=== PATIENT | female | born 1950 | race Caucasian/White ===

== ENCOUNTER → 2016-10-21 | Outpatient (CLI) | payer MEDICARE | LOC: YCFC.O 15:00 | PROVIDERS: ATTEND Anesthesiology Pain Medicine | DX: Z79.891 Long term (current) use of opiate analgesic (principal) | CPT/HCPCS: 80354; 80358; 80365; G0479 ==

== ENCOUNTER 2017-11-17 15:53 | Emergency (ER) | payer MEDICARE ==
[2017-11-17 16:18] VITALS: BP 146/104; TEMP 97.1; O2SAT 98
--- NOTE | 2017-11-17 17:05 | RAD ---
EXAM DESCRIPTION: Chest,2 Views CLINICAL HISTORY: 67 years Female, cough, diarrhea COMPARISON: 21 October 2015 TECHNIQUE: PA/lateral FINDINGS: There is no cardiac or pulmonary abnormality. The lungs are clear. There is no effusion. IMPRESSION: 1. Normal two-view chest. Electronically signed by: Chris Garcia MD 11/17/2017 5:04 PM [facility]
--- NOTE | 2017-11-17 17:08 | RAD ---
EXAM DESCRIPTION: Abdomen Flat Upright CLINICAL HISTORY: cough, diarrhea COMPARISON: None FINDINGS: Supine and upright images of the abdomen were submitted. The heart is enlarged. The right side of the cardiomediastinal silhouette is poorly defined, and there is thickening of the pulmonary interstitial markings. There is no free air in the abdomen. There is no evidence of bowel obstruction. IMPRESSION: Findings suggest inflammation of the lungs, perhaps viral. No acute intra-abdominal abnormalities. Electronically signed by: Ravi Harris 11/17/2017 5:07 PM [facility]
--- NOTE | 2017-11-17 18:11 | ED.PDOC ---
History of Present Illness - General Chief Complaint: General Stated Complaint: DIARRHEA, URI Time Seen by Provider: 11/17/17 16:17 Source: patient Exam Limitations: no limitations - History of Present Illness Initial Comments: The patient is a 67-year-old female presenting to the emergency room with mild cough and congestion as well as some very mild nausea and some diarrhea for the better part of last week. Questionable low-grade fevers. No chest pain. No shortness of breath. No vomiting. No blood in the stool. She does have a grandson with similar symptoms. Timing/Duration: unsure, 1 week Severity: mild Improving Factors: nothing Worsening Factors: nothing Associated Symptoms: cough, loss of appetite, malaise Allergies/Adverse Reactions: Allergies NO KNOWN ALLERGY Allergy (Verified 03/16/16 18:45) Home Medications: Ambulatory Orders Ciprofloxacin [Cipro] 500 mg PO BID #14 tab 05/06/16 Lisinopril & Hydrochlorothiazi [Lisinopril/Hctz 20-12.5 mg] 1 tab PO 05/06/16 Review of Systems - Review of Systems Constitutional: States: malaise EENTM: States: nose congestion Respiratory: States: cough Cardiology: States: no symptoms reported Gastrointestinal/Abdominal: States: diarrhea, nausea Genitourinary: States: no symptoms reported Musculoskeletal: States: no symptoms reported Skin: States: no symptoms reported Neurological: States: no symptoms reported Endocrine: States: no symptoms reported Hematologic/Lymphatic: States: no symptoms reported All other Systems: No Change from Baseline Past Medical History (General) - Patient Medical History Hx Stroke: No Hx Asthma: No Hx of COPD: No Hx Congestive Heart Failure: Yes Hx Hypertension: Yes Hx Thyroid Disease: Yes Hx Diabetes: No Hx Cancer: No Hx MRSA: No Surgical History: Hysterectomy - Vaccination History Hx Tetanus, Diphtheria Vaccination: No Hx Influenza Vaccination: No Hx Pneumococcal Vaccination: No Immunizations Up to Date: No - Social History Hx Tobacco Use: Yes Hx Alcohol Use: No Hx Substance Use: No Hx Substance Use Treatment: No Hx Depression: Yes - Female History Patient : No Family Medical History - Family History Mother Family History: Unknown Hx Family Hypertension: Yes Hx Family Cancer: Yes - lung Physical Exam - Physical Exam General Appearance: Alert, Comfortable, No apparent distress Eye Exam: bilateral normal Ears, Nose, Throat: hearing grossly normal, normal pharynx, nasal congestion Neck: full range of motion, supple Respiratory: lungs clear, normal breath sounds, no respiratory distress, no accessory muscle use Cardiovascular/Chest: normal peripheral pulses, regular rate, rhythm, no edema Peripheral Pulses: radial,right: 2+, radial,left: 2+, dorsalis pedis,right: 2+, dorsalis pedis,left: 2+ Gastrointestinal/Abdominal: non tender, soft Rectal Exam: deferred Back Exam: normal inspection, no CVA tenderness Extremity: normal range of motion, non-tender, normal inspection, no pedal edema , normal capillary refill 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 She needs to keep herself well-hydrated. Pepto-Bismol can be used as needed for constipation. Pepcid can be used twice daily for gastritis. Tylenol and ibuprofen can be used for any body aches and discomfort. ER warnings are given for any significant worsening. She should follow-up with her primary care doctor towards the end of the week. She tested negative for the flu here today. - Results/Orders Results/Orders: she has tested negative for the flu. Two-view chest into the abdomen showed no acute pathology. Departure - Departure Clinical Impression: Viral syndrome Disposition: Discharge to Home or Self Care Condition: Fair Departure Forms: ED Discharge - Pt. Copy, Patient Portal Self Enrollment Instructions: DI for Viral Syndrome Diet: bland diet Activity: increase activity as tolerated Referrals: Robert Wolfe MD [Primary Care Provider] - 1-2 Weeks Home Medications: Ambulatory Orders Ciprofloxacin [Cipro] 500 mg PO BID #14 tab 05/06/16 Lisinopril & Hydrochlorothiazi [Lisinopril/Hctz 20-12.5 mg] 1 tab PO 05/06/16 Additional Instructions: the patient is a 67-year-old female presenting to the emergency room secondary to what appears to be a viral syndrome giving both respiratory and GI symptoms. She needs to keep herself well-hydrated. Pepto-Bismol can be used as needed for constipation. Pepcid can be used twice daily for gastritis. Tylenol and ibuprofen can be used for any body aches and discomfort. ER warnings are given for any significant worsening. She should follow-up with her primary care doctor towards the end of the week. She tested negative for the flu here today.
== END 2017-11-17 18:17 | disposition home or self-care (01) ==
LOC: ER 15:53
DX: R05 Cough (principal); B34.9 Viral infection, unspecified; I11.0 Hypertensive heart disease with heart failure; I50.9 Heart failure, unspecified; E07.9 Disorder of thyroid, unspecified

== ENCOUNTER 2018-05-05 20:19 | Emergency (ER) | payer MEDICARE ==
[2018-05-05 20:39] VITALS: BP 92/56; O2SAT 98
--- NOTE | 2018-05-05 20:55 | RAD ---
EXAM DESCRIPTION: Foot,Left 2 Views CLINICAL HISTORY: 68 years Female, injured foot a month ago, still having pain COMPARISON: 03/16/2015 FINDINGS: Frontal and lateral views of the left foot No fracture or dislocation. Calcaneus bone is within normal limits. A small ankle joint effusion is possible. IMPRESSION: 1. No acute osseous finding. 2. Possible small ankle joint effusion Electronically signed by: Soila Terry MD 05/05/2018 8:54 PM CDT
--- NOTE | 2018-05-05 21:07 | ED.PDOC ---
History of Present Illness - General Chief Complaint: Lower Extremity Injury Stated Complaint: Left foot pain Time Seen by Provider: 05/05/18 20:56 Source: patient Exam Limitations: no limitations - History of Present Illness Initial Comments: INJURED L FOOT 1 MO AGO IN HER TRAVEL TRAILER WHEN BED FELL ATOP OF IN. THEN LAST NIGHT REINJURED WHEN SHE WAS STANDING ON HER BED AND ACCIDENTALLY SLIPPED OFF. SHE MENTIONS SHE HAD A LUMBAR MRI WITH DR. 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 Occurred: yesterday Pain - Lower Extremity: moderate: Left Foot Method of Injury: fell Improving Factors: immobilization Worsening Factors: movement Allergies/Adverse Reactions: Allergies NO KNOWN ALLERGY Allergy (Verified 03/16/16 18:45) Home Medications: Ambulatory Orders Ciprofloxacin [Cipro] 500 mg PO BID #14 tab 05/06/16 Lisinopril & Hydrochlorothiazi [Lisinopril/Hctz 20-12.5 mg] 1 tab PO 05/06/16 Ibuprofen 800 mg PO TID #21 tab 05/05/18 Review of Systems - Review of Systems Constitutional: States: no symptoms reported EENTM: States: no symptoms reported Respiratory: States: no symptoms reported Cardiology: States: no symptoms reported Gastrointestinal/Abdominal: States: no symptoms reported Genitourinary: States: no symptoms reported Musculoskeletal: States: see HPI, joint pain, joint swelling. Denies: back pain , neck pain Skin: States: no symptoms reported. Denies: lesions, rash Neurological: States: pre-existing deficit - CHRONICALLY DECREASED SENSATION PLANTAR SURFACE. Endocrine: States: no symptoms reported Hematologic/Lymphatic: States: no symptoms reported All other Systems: Reviewed and Negative Past Medical History (General) - Patient Medical History Hx Stroke: No Hx Asthma: No Hx of COPD: No Hx Congestive Heart Failure: Yes Hx Hypertension: Yes Hx Thyroid Disease: Yes Hx Diabetes: No Hx Cancer: No Hx MRSA: No Surgical History: Hysterectomy - Vaccination History Hx Tetanus, Diphtheria Vaccination: No Hx Influenza Vaccination: No Hx Pneumococcal Vaccination: No - Social History Hx Tobacco Use: Yes Hx Alcohol Use: No Hx Substance Use: No Hx Substance Use Treatment: No Hx Depression: Yes - Female History Patient : No - Triage Comment ED Triage Comment: top of left foot, bruising noted, no edema Family Medical History - Family History Mother Family History: Unknown Hx Family Hypertension: Yes Hx Family Cancer: Yes - lung Physical Exam - Physical Exam General Appearance: Alert, No apparent distress Eyes, Ears, Nose, Throat: PERRL/EOMI, normal ENT inspection Neck: non-tender, full range of motion Cardiovascular/Respiratory: regular rate, rhythm, no M/R/G Gastrointestinal/Abdominal: non-tender, no organomegaly Back: normal inspection, no vertebral tenderness Thigh/Hip: normal inspection, no evidence of injury Leg: normal inspection, no evidence of injury Knee: normal inspection, no evidence of injury Ankle: normal inspection, no evidence of injury Foot: normal inspection, bone tenderness, soft tissue tenderness, other - MIDFOOT AND HINDFOOT TTP. ATFL LIGAMENT NON-TENDER TO STRETCH. NO ANKLE PAIN WITH FLEX/EXT. NO EDEMA. NO ERYTHEMA. DP/PT PULSES 2+ Neuro/Tendon: normal sensation, normal motor functions, normal tendon functions , responds to pain Mental Status: alert, oriented x 3 Skin: normal color, warm/dry Progress - Progress Progress: 05/05/18 21:27 L FOOT XRAY NEG. POS SPRAIN/STRAIN. R.I.C.E. MOTRIN. F/U W/ PCP. Departure - Departure Clinical Impression: Left foot pain, Strain of foot, left Disposition: Discharge to Home or Self Care Condition: Good Departure Forms: ED Discharge - Pt. Copy, Patient Portal Self Enrollment Instructions: Foot Sprain (DC) Diet: resume usual diet Activity: increase activity as tolerated Referrals: Robert Wolfe MD [Primary Care Provider] - 1-2 Weeks Prescriptions: Ibuprofen 800 mg PO TID #21 tab Home Medications: Ambulatory Orders Ciprofloxacin [Cipro] 500 mg PO BID #14 tab 05/06/16 Lisinopril & Hydrochlorothiazi [Lisinopril/Hctz 20-12.5 mg] 1 tab PO 05/06/16 Ibuprofen 800 mg PO TID #21 tab 05/05/18 Additional Instructions: Please apply ice to the area, rest, and elevate the foot. Take the ibuprofen for 1 week. Please follow-up with Dr. Wolfe to discuss the results of the low back MRI he ordered and to see how your foot is feeling.
[2018-05-05] MEDS ORDERED: KETOROLAC TROMETHAMINE INJ 60 MG/2 ML VIAL IM ONE (21:15)
[2018-05-05 21:37] VITALS: TEMP 98.4
== END 2018-05-05 21:37 | disposition home or self-care (01) ==
LOC: ER 20:19
DX: S96.912A Strain of unspecified muscle and tendon at ankle and foot level, left foot, initial encounter (principal); I11.0 Hypertensive heart disease with heart failure; I50.9 Heart failure, unspecified; E07.9 Disorder of thyroid, unspecified; Z79.899 Other long term (current) drug therapy; W06.XXXA Fall from bed, initial encounter; Y92.029 Unspecified place in mobile home as the place of occurrence of the external cause
CPT/HCPCS: 73620; J1885

== ENCOUNTER 2018-08-30 23:12 | Emergency (ER) | payer MEDICARE ==
[2018-08-31] MEDS: POTASSIUM CHLORIDE ELIXIR 20 MEQ/15 ML UD PO ONE (00:18)
--- NOTE | 2018-08-31 00:25 | RAD ---
EXAM: TWO VIEW SINGLE and UPRIGHT ABDOMEN AND PA CHEST RADIOGRAPHS CLINICAL INDICATION: Acute chest pain. Shortness of breath. Diarrhea. COMPARISON: Compared to the chest radiographs of November 17, 2017. FINDINGS: Cardiac size and pulmonary vasculature are normal. Hyperexpanded lungs are clear. No pleural effusions or pneumothorax. Bones of the chest appear intact. Multiple loops of gas-filled nondistended small bowel colon suspicious for adynamic ileus. No mechanical bowel obstruction or extraluminal bowel gas. Bowel gas extends into the rectum. IMPRESSION: 1. Suspect early adynamic ileus versus enteritis. No mechanical bowel obstruction or extraluminal bowel gas. 2. Normal for age chest radiograph. Electronically signed by: Thor Henley MD 08/31/2018 12:24 AM [employer]
--- NOTE | 2018-08-31 01:22 | ED.PDOC ---
History of Present Illness - General Chief Complaint: Chest Pain/NM Stated Complaint: L shoulder/back pain x 1 month, SOB 1-2 month Time Seen by Provider: 08/30/18 23:21 Source: patient Exam Limitations: no limitations - History of Present Illness Initial Comments: the patient is a 68-year-old female presenting to the emergency room secondary to a constellation of symptoms. Patient reports intermittent chest pains for the last 2 months. She has been having frequent diarrhea. She has been having frequent headaches. She has been having frequent anxiety. She reports that she tried to go to the primary care doctor 2 days ago he was not in. She does report some urinary frequency. She has been taking over-the- counter nutritional supplements. Chest pains do not seem to be tied to activity. No history of any cardiac issues but she does have a history of hypertension. the patient is in no distress whatsoever. She does have chest wall pain diffusely that does reproduce her chest pain entirely. It is worse with movement. No abdominal pain palpation. No palpable mass. No neurological changes. The patient is very anxious Timing/Duration: unsure Severity: mild Improving Factors: nothing Worsening Factors: nothing Associated Symptoms: chest pain, headaches, malaise Allergies/Adverse Reactions: Allergies NO KNOWN ALLERGY Allergy (Verified 08/30/18 23:38) Home Medications: Ambulatory Orders Ciprofloxacin [Cipro] 500 mg PO BID #14 tab 05/06/16 Lisinopril & Hydrochlorothiazi [Lisinopril/Hctz 20-12.5 mg] 1 tab PO 05/06/16 Ibuprofen 800 mg PO TID #21 tab 05/05/18 Cephalexin Monohydrate [Keflex] 500 mg PO Q8H #20 cap 08/31/18 Review of Systems - Review of Systems Constitutional: States: malaise EENTM: States: nose congestion Respiratory: States: short of breath - mild Cardiology: States: chest pain Gastrointestinal/Abdominal: States: diarrhea Genitourinary: States: frequency Musculoskeletal: States: other - generalized achiness Skin: States: no symptoms reported Neurological: States: headache Endocrine: States: no symptoms reported All other Systems: No Change from Baseline Past Medical History (General) - Patient Medical History Hx Seizures: No Hx Stroke: No Hx Dementia: No Hx Asthma: No Hx of COPD: Yes Hx Cardiac Disorders: No Hx Congestive Heart Failure: Yes Hx Pacemaker: No Hx Hypertension: Yes Hx Thyroid Disease: Yes Hx Diabetes: No Hx Gastroesophageal Reflux: No Hx Renal Disease: No Hx Cancer: No Hx of HIV: No Hx Hepatitis C: No Hx MRSA: No Surgical History: Hysterectomy - Vaccination History Hx Tetanus, Diphtheria Vaccination: No Hx Influenza Vaccination: No Hx Pneumococcal Vaccination: No - Social History Hx Tobacco Use: Yes Hx Alcohol Use: No Hx Substance Use: No Hx Substance Use Treatment: No Hx Depression: Yes - Female History Patient : No Family Medical History - Family History Mother Family History: Unknown Hx Family Hypertension: Yes Hx Family Cancer: Yes - lung Physical Exam - Physical Exam General Appearance: Alert, Anxious, No apparent distress Eye Exam: bilateral normal Ears, Nose, Throat: hearing grossly normal, normal ENT inspection, normal pharynx Neck: full range of motion, supple, normal inspection Respiratory: lungs clear, normal breath sounds, no respiratory distress, no accessory muscle use, other - anterior chest wall discomfort palpation Cardiovascular/Chest: normal peripheral pulses, regular rate, rhythm, no edema Peripheral Pulses: radial,right: 2+, radial,left: 2+, dorsalis pedis,right: 2+, dorsalis pedis,left: 2+ Gastrointestinal/Abdominal: non tender, soft Rectal Exam: deferred Back Exam: normal inspection, no CVA tenderness, no vertebral tenderness Extremity: normal range of motion, non-tender, normal inspection, no pedal edema , normal capillary refill Neurologic: science faculty member II-XII nml as tested, no motor/sensory deficits, alert, normal mood/affect - she is anxious, oriented x 3 Skin Exam: normal color Comments: Vital Signs - 24 hr 08/30/18 08/31/18 23:16 00:28 Temperature 96.5 F L Pulse Rate [ 80 76 monitor] Respiratory 16 16 Rate Blood Pressure 121/96 140/71 [Left Arm] O2 Sat by Pulse 99 96 Oximetry Progress - Progress Progress: 08/31/18 01:25 the patient's 68-year-old female presenting to the emergency room with a numerous symptoms. Potassium is slightly low and she was given a dose of potassium here. She will need to have this rechecked in a couple of weeks with her primary care doctor to see if this is persisting. The patient has been having some diarrhea recently. I do recommend that she hold her dietary and nutritional supplements for a few weeks, as these may be contributing. She does have a small urinary tract infection will be placed on Keflex 3 times daily for 7 days. Urine culture is being performed. I do recommend that she maintain a high fiber diet for now. Chest pain appears to be reproducible and due to chest wall discomfort. This may improve with the correction of the hypokalemia. Topical heat in the form of icy hot or Biofreeze may also help. She needs to follow back up with her primary care doctor this coming week. ER warnings were given. - Results/Orders Results/Orders: telemetry shows normal sinus rhythm EKG shows an inverted T wave in lead [address] segment or T-wave changes consistent with any ischemia. Mild right axis deviation. Borderline LVH. Mild left atrial dilation. Normal QT interval. Normal sinus rhythm at 81 bpm. Acute abdominal series shows a normal chest radiograph per age. Abdomen x-ray showed mild dilation of loops of bowels consistent with possible adynamic ileus or gastroenteritis. Laboratory Results - last 24 hr 08/30/18 08/30/18 08/30/18 23:50 23:50 23:50 WBC 6.5 RBC 4.17 L Hgb 13.4 Hct 40.4 MCV 96.8 MCH 32.1 H MCHC 33.2 RDW 13.5 Plt Count 240 MPV 7.1 L Absolute Neuts (auto) 3.50 Absolute Lymphs (auto) 2.00 Absolute Monos (auto) 0.50 Absolute Eos (auto) 0.40 Absolute Basos (auto) 0.10 Neutrophils % 54.3 Lymphocytes % 31.3 Monocytes % 8.1 Eosinophils % 5.5 H Basophils % 0.8 PT 9.7 INR 0.97 PTT (SP) 23.4 Sodium 141 Potassium 3.5 L Chloride 109 Carbon Dioxide 27 Anion Gap 8.5 L BUN 14 Creatinine 0.87 BUN/Creatinine Ratio 16.1 Random Glucose 99 Serum Osmolality 281.8 Calcium 10.1 Magnesium 2.1 Total Bilirubin < 0.2 L AST 21 ALT 15 Alkaline Phosphatase 88 Creatine Kinase 82 CK-MB (CK-2) 2.6 CK-MB (CK-2) % Not Reportable Troponin I < 0.02 B-Natriuretic Peptide 20.1 Serum Total Protein 6.6 Albumin 3.6 Globulin 3.0 Albumin/Globulin Ratio 1.2 Amylase 42 Lipase 28 TSH 0.70 Urine Color Urine Appearance Urine pH Ur Specific [place] Urine Protein Urine Glucose (UA) Urine Ketones Urine Blood Urine Nitrite Urine Bilirubin Urine Urobilinogen Ur Leukocyte Esterase Urine RBC Urine WBC Ur Epithelial Cells Urine Bacteria 08/31/18 00:05 WBC RBC Hgb Hct MCV MCH MCHC RDW Plt Count MPV Absolute Neuts (auto) Absolute Lymphs (auto) Absolute Monos (auto) Absolute Eos (auto) Absolute Basos (auto) Neutrophils % Lymphocytes % Monocytes % Eosinophils % Basophils % PT INR PTT (SP) Sodium Potassium Chloride Carbon Dioxide Anion Gap BUN Creatinine BUN/Creatinine Ratio Random Glucose Serum Osmolality Calcium Magnesium Total Bilirubin AST ALT Alkaline Phosphatase Creatine Kinase CK-MB (CK-2) CK-MB (CK-2) % Troponin I B-Natriuretic Peptide Serum Total Protein Albumin Globulin Albumin/Globulin Ratio Amylase Lipase TSH Urine Color Yellow Urine Appearance Cloudy Urine pH 6.0 Ur Specific [place] 1.015 Urine Protein Negative Urine Glucose (UA) Negative Urine Ketones Negative Urine Blood Negative Urine Nitrite Positive H Urine Bilirubin Negative Urine Urobilinogen 0.2 Ur Leukocyte Esterase Negative Urine RBC 0 Urine WBC 5-10 H Ur Epithelial Cells 0-1 Urine Bacteria 4+ H Departure - Departure Clinical Impression: Hypokalemia, Cystitis, Chest wall pain Diarrhea Qualifiers: Diarrhea type: unspecified type Qualified Code(s): R19.7 - Diarrhea, unspecified Disposition: Discharge to Home or Self Care Condition: Fair Departure Forms: ED Discharge - Pt. Copy, Patient Portal Self Enrollment Instructions: Hypokalemia (DC), Urinary Tract Infection, Adult (DC), [place] Diet Diet: bland diet - High-fiber Activity: increase activity as tolerated Referrals: Robert Wolfe MD [Primary Care Provider] - 1-2 Days Prescriptions: Cephalexin Monohydrate [Keflex] 500 mg PO Q8H #20 cap Home Medications: Ambulatory Orders Ciprofloxacin [Cipro] 500 mg PO BID #14 tab 05/06/16 Lisinopril & Hydrochlorothiazi [Lisinopril/Hctz 20-12.5 mg] 1 tab PO 05/06/16 Ibuprofen 800 mg PO TID #21 tab 05/05/18 Cephalexin Monohydrate [Keflex] 500 mg PO Q8H #20 cap 08/31/18 Additional Instructions: the patient's 68-year-old female presenting to the emergency room with a numerous symptoms. Potassium is slightly low and she was given a dose of potassium here. She will need to have this rechecked in a couple of weeks with her primary care doctor to see if this is persisting. The patient has been having some diarrhea recently. I do recommend that she hold her dietary and nutritional supplements for a few weeks, as these may be contributing. She does have a small urinary tract infection will be placed on Keflex 3 times daily for 7 days. Urine culture is being performed. I do recommend that she maintain a high fiber diet for now. Chest pain appears to be reproducible and due to chest wall discomfort. This may improve with the correction of the hypokalemia. Topical heat in the form of icy hot or Biofreeze may also help. She needs to follow back up with her primary care doctor this coming week. ER warnings were given.
[2018-08-31] MEDS: CEPHALEXIN MONOHYDRATE 500 MG CAP PO ONE (01:25)
[2018-08-31 01:43] VITALS: BP 119/83; TEMP 97.1; O2SAT 97
== END 2018-08-31 01:43 | disposition home or self-care (01) ==
LOC: ER 23:12
DX: R07.1 Chest pain on breathing (principal); N30.90 Cystitis, unspecified without hematuria; R19.7 Diarrhea, unspecified; E87.6 Hypokalemia; R51 Headache; J44.9 Chronic obstructive pulmonary disease, unspecified; I50.9 Heart failure, unspecified; I11.0 Hypertensive heart disease with heart failure; E07.9 Disorder of thyroid, unspecified; Z87.891 Personal history of nicotine dependence; Z79.899 Other long term (current) drug therapy

== ENCOUNTER 2019-01-17 19:16 | Emergency (ER) | payer MEDICARE ==
--- NOTE | 2019-01-17 19:33 | ED.PDOC ---
History of Present Illness - General Time Seen by Provider: 01/17/19 19:18 Source: patient Exam Limitations: no limitations - History of Present Illness Initial Comments: the patient's 68-year-old female presenting to the emergency room secondary to a mild cellulitis to the left forearm that has been present for about 5 days. There are 2 spots, the uppermost is about the size of a nickel with a circular shape to it. There is no evidence of any abscess formation underneath and no streaking erythema. The second is approximately 2 inches distal and is about 3-4 mm in diameter with again no evidence of any pus or streaking about it. They are minimally tender. No evidence of any other skin lesions. Timing/Duration: other - 5 days Severity: mild Improving Factors: nothing Worsening Factors: nothing Associated Symptoms: denies symptoms Allergies/Adverse Reactions: Allergies NO KNOWN ALLERGY Allergy (Verified 08/30/18 23:38) Home Medications: Ambulatory Orders Ciprofloxacin [Cipro] 500 mg PO BID #14 tab 05/06/16 Lisinopril & Hydrochlorothiazi [Lisinopril/Hctz 20-12.5 mg] 1 tab PO 05/06/16 Ibuprofen 800 mg PO TID #21 tab 05/05/18 Cephalexin Monohydrate [Keflex] 500 mg PO Q8H #20 cap 08/31/18 Sulfa/Trimeth 800/160 (Ds) Tab [Bactrim DS Tab] 1 ea PO DAILY #5 tab 01/17/19 Review of Systems - Review of Systems Constitutional: States: no symptoms reported EENTM: States: no symptoms reported Respiratory: States: no symptoms reported Cardiology: States: no symptoms reported Gastrointestinal/Abdominal: States: no symptoms reported Genitourinary: States: no symptoms reported Musculoskeletal: States: no symptoms reported Skin: States: see HPI Neurological: States: no symptoms reported Endocrine: States: no symptoms reported All other Systems: No Change from Baseline Past Medical History (General) - Patient Medical History Hx Seizures: No Hx Stroke: No Hx Dementia: No Hx Asthma: No Hx of COPD: Yes Hx Cardiac Disorders: No Hx Congestive Heart Failure: Yes Hx Pacemaker: No Hx Hypertension: Yes Hx Thyroid Disease: Yes Hx Diabetes: No Hx Gastroesophageal Reflux: No Hx Renal Disease: No Hx Cancer: No Hx of HIV: No Hx Hepatitis C: No Hx MRSA: No - Vaccination History Hx Tetanus, Diphtheria Vaccination: No Hx Influenza Vaccination: No Hx Pneumococcal Vaccination: No - Social History Hx Tobacco Use: Yes Hx Alcohol Use: No Hx Substance Use: No Hx Substance Use Treatment: No Hx Depression: Yes - Female History Patient : No Family Medical History - Family History Mother Family History: Unknown Hx Family Hypertension: Yes Hx Family Cancer: Yes - lung Physical Exam - Physical Exam General Appearance: Alert, Comfortable, No apparent distress Eye Exam: bilateral normal Ears, Nose, Throat: hearing grossly normal Neck: full range of motion Respiratory: no respiratory distress, no accessory muscle use Cardiovascular/Chest: normal peripheral pulses, no edema Peripheral Pulses: radial,right: 2+, radial,left: 2+ Rectal Exam: deferred Extremity: normal range of motion, non-tender, no pedal edema, normal capillary refill Neurologic: panel assembler II-XII nml as tested, alert, normal mood/affect, oriented x 3 Skin Exam: normal color - except as per history of present illness Progress - Progress Progress: 01/17/19 19:32 the patient is 68-year-old female presenting with 2 small areas of ce llulitis to left upper extremity. I do believe that the irritation or infection is largely starting to resolve but I'm going to place her on 5 days of oral Bactrim once daily to help ensure that they go away. ER warnings were given for any worsening. Keep routine follow-up with primary care doctor. Departure - Departure Clinical Impression: Cellulitis Qualifiers: Site of cellulitis: extremity Site of cellulitis of extremity: upper extremity Laterality: left Qualified Code(s): L03.114 - Cellulitis of left upper limb Disposition: Discharge to Home or Self Care Condition: Fair Instructions: DI for Wound Infection Diet: regular diet Activity: increase activity as tolerated Referrals: Robert Wolfe MD [Primary Care Provider] - 1-2 Weeks Prescriptions: Sulfa/Trimeth 800/160 (Ds) Tab [Bactrim DS Tab] 1 ea PO DAILY #5 tab Home Medications: Ambulatory Orders Ciprofloxacin [Cipro] 500 mg PO BID #14 tab 05/06/16 Lisinopril & Hydrochlorothiazi [Lisinopril/Hctz 20-12.5 mg] 1 tab PO 05/06/16 Ibuprofen 800 mg PO TID #21 tab 05/05/18 Cephalexin Monohydrate [Keflex] 500 mg PO Q8H #20 cap 08/31/18 Sulfa/Trimeth 800/160 (Ds) Tab [Bactrim DS Tab] 1 ea PO DAILY #5 tab 01/17/19 Additional Instructions: the patient is 68-year-old female presenting with 2 small areas of cellulitis to left upper extremity. I do believe that the irritation or infection is largely starting to resolve but I'm going to place her on 5 days of oral Bactrim once daily to help ensure that they go away. ER warnings were given for any worsening. Keep routine follow-up with primary care doctor.
[2019-01-17 19:35] VITALS: O2SAT 98
[2019-01-17] MEDS: SULFA/TRIMETH 800/160 (DS) TAB 1 EA TAB PO ONE (19:40)
[2019-01-17 19:47] VITALS: BP 144/89; TEMP 98.9
== END 2019-01-17 19:46 | disposition home or self-care (01) ==
LOC: ER 19:16
DX: L03.114 Cellulitis of left upper limb (principal); F32.9 Major depressive disorder, single episode, unspecified; J44.9 Chronic obstructive pulmonary disease, unspecified; I50.9 Heart failure, unspecified; I11.0 Hypertensive heart disease with heart failure; E07.9 Disorder of thyroid, unspecified; Z87.891 Personal history of nicotine dependence; Z79.899 Other long term (current) drug therapy

== ENCOUNTER 2019-04-09 22:50 | Emergency (ER) | payer MEDICARE ==
[2019-04-09] MEDS ORDERED: SODIUM CHLORIDE 0.9% (FLUSH) 10 ML SYG IV PRN (23:31)
--- NOTE | 2019-04-09 23:38 | ED.PDOC ---
History of Present Illness - General Chief Complaint: ENT Problem Stated Complaint: Sore Throat, cough, fever, x 4 days Time Seen by Provider: 04/09/19 23:31 Source: patient Exam Limitations: no limitations - History of Present Illness Initial Comments: PT PRESENTS TO THE ED WITH 1 MONTH HISTORY OF PROGRESSIVELY WORSENING LEFT MANDIBLE PAIN AND SORE THROAT. PT REPORTS SYMPTOMS ACUTELY WORSENED AND NOW INCLUDE COUGH AND FEVER OVER THE PAST 4 DAYS. PT REPORTS RECENT TOOTH EXTRACTION 1 MONTH AGO AND STATES THAT DENTIST PRESCRIBED ABX FOR THE PAIN HOWEVER, SYMPTOMS DID NOT IMPROVE. Timing/Duration: constant, getting worse Severity: moderate Improving Factors: nothing Worsening Factors: eating - SWALLOWING Associated Symptoms: cough, fever/chills Allergies/Adverse Reactions: Allergies NO KNOWN ALLERGY Allergy (Verified 08/30/18 23:38) Home Medications: Ambulatory Orders Ciprofloxacin [Cipro] 500 mg PO BID #14 tab 05/06/16 Lisinopril & Hydrochlorothiazi [Lisinopril/Hctz 20-12.5 mg] 1 tab PO 05/06/16 Ibuprofen 800 mg PO TID #21 tab 05/05/18 Cephalexin Monohydrate [Keflex] 500 mg PO Q8H #20 cap 08/31/18 Sulfa/Trimeth 800/160 (Ds) Tab [Bactrim DS Tab] 1 ea PO DAILY #5 tab 01/17/19 Acetaminophen W/ Codeine [Tylenol W/ CODEINE #3] 1 ea PO Q4HR PRN #24 04/10/19 Ibuprofen 800 mg PO Q8HR PRN #30 tab 04/10/19 Review of Systems - Review of Systems Constitutional: States: fever. Denies: chills EENTM: States: ear pain, throat pain, mouth pain Respiratory: States: cough. Denies: short of breath Cardiology: Denies: chest pain, palpitations Gastrointestinal/Abdominal: Denies: nausea, vomiting Genitourinary: Denies: dysuria, frequency Musculoskeletal: Denies: joint pain, joint swelling Skin: Denies: lesions, rash Neurological: Denies: headache, numbness Endocrine: States: no symptoms reported Past Medical History (General) - Patient Medical History Hx Seizures: No Hx Stroke: No Hx Dementia: No Hx Asthma: No Hx of COPD: Yes Hx Cardiac Disorders: No Hx Congestive Heart Failure: Yes Hx Pacemaker: No Hx Hypertension: Yes Hx Thyroid Disease: Yes Hx Diabetes: No Hx Gastroesophageal Reflux: No Hx Renal Disease: No Hx Cancer: No Hx of HIV: No Hx Hepatitis C: No Hx MRSA: No - Vaccination History Hx Tetanus, Diphtheria Vaccination: No Hx Influenza Vaccination: No Hx Pneumococcal Vaccination: No - Social History Hx Tobacco Use: Yes Hx Alcohol Use: No Hx Substance Use: No Hx Substance Use Treatment: No Hx Depression: Yes - Female History Patient : No Family Medical History - Family History Mother Family History: Unknown Hx Family Hypertension: Yes Hx Family Cancer: Yes - lung Physical Exam - Physical Exam General Appearance: Alert, Comfortable, Well Developed, Well Groomed, Well Hydrated, Other - APPEARS UNCOMFORTABLE Ears, Nose, Throat: hearing grossly normal, pharyngeal erythema Neck: supple, lymphadenopathy (R), lymphadenopathy (L) Respiratory: lungs clear, normal breath sounds, no respiratory distress Cardiovascular/Chest: regular rate, rhythm, no murmur Gastrointestinal/Abdominal: non tender, soft Neurologic: alert, normal mood/affect, oriented x 3 Skin Exam: normal color, warm/dry Progress - Progress Progress: 04/10/19 01:40 PT RESTING COMFORTABLY ON RE-EVALUATION. LABS AND DIAGNOSTICS DISCUSSED. METALLIC FB SEEN IN LEFT MANDIBLE DISCUSSED WITH PATIENT. I WILL D/C HOME WITH IMAGES ON A DISC ALONG WITH CT READING SO PT MAY FOLLOW UP WITH ORAL SURGEON FOR FURTHER EVALUATION. - Results/Orders Results/Orders: Laboratory Tests 04/09/19 04/09/19 04/10/19 23:32 23:32 00:42 WBC 9.0 RBC 4.11 L Hgb 13.5 Hct 40.2 MCV 97.8 MCH 32.8 H MCHC 33.6 RDW 12.9 Plt Count 277 MPV 7.1 L Absolute Neuts (auto) 5.60 Absolute Lymphs (auto) 2.40 Absolute Monos (auto) 0.80 Absolute Eos (auto) 0.20 Absolute Basos (auto) 0.10 Neutrophils % 62.3 Lymphocytes % 26.3 Monocytes % 8.5 Eosinophils % 2.0 Basophils % 0.9 Sodium 140 Potassium 3.3 L Chloride 107 Carbon Dioxide 24 Anion Gap 12.3 BUN 14 Creatinine 1.03 BUN/Creatinine Ratio 13.6 Random Glucose 108 H Serum Osmolality 280.4 Calcium 10.0 Total Bilirubin 0.4 AST 20 ALT 15 Alkaline Phosphatase 80 Serum Total Protein 6.4 Albumin 3.4 Globulin 3.0 Albumin/Globulin Ratio 1.1 Group A Strep Rapid Negative Departure - Departure Clinical Impression: Oral foreign body, Pain in lower jaw, Dysphagia Time of Disposition: 01:44 Disposition: Discharge to Home or Self Care Condition: Good Departure Forms: ED Discharge - Pt. Copy, Patient Portal Self Enrollment Instructions: Dental Pain (DC), Dysphagia (DC) Diet: resume usual diet Referrals: Robert Wolfe MD [Primary Care Provider] - 1-2 Weeks Prescriptions: Acetaminophen W/ Codeine [Tylenol W/ CODEINE #3] 1 ea PO Q4HR PRN #24 PRN Reason: Pain Ibuprofen 800 mg PO Q8HR PRN #30 tab PRN Reason: Pain Home Medications: Ambulatory Orders Ciprofloxacin [Cipro] 500 mg PO BID #14 tab 05/06/16 Lisinopril & Hydrochlorothiazi [Lisinopril/Hctz 20-12.5 mg] 1 tab PO 05/06/16 Ibuprofen 800 mg PO TID #21 tab 05/05/18 Cephalexin Monohydrate [Keflex] 500 mg PO Q8H #20 cap 08/31/18 Sulfa/Trimeth 800/160 (Ds) Tab [Bactrim DS Tab] 1 ea PO DAILY #5 tab 01/17/19 Acetaminophen W/ Codeine [Tylenol W/ CODEINE #3] 1 ea PO Q4HR PRN #24 04/10/19 Ibuprofen 800 mg PO Q8HR PRN #30 tab 04/10/19 Additional Instructions: FOLLOW UP WITH DENTAL SURGEON FOR FURTHER EVAL IN 1-5 DAYS
--- NOTE | 2019-04-10 00:31 | RAD ---
CHEST, ONE VIEW XR 04/10/2019 CLINICAL HISTORY: Cough COMPARISON: Chest 02/14/2018 TECHNIQUE: AP Chest. FINDINGS: The cardiac size is borderline enlarged. Mildly tortuous thoracic aorta. Normal pulmonary vascularity. Lungs and pleural spaces are clear. Lungs are mildly hyperinflated. Unremarkable soft tissues and bones. IMPRESSION: 1. No acute chest disease. 2. Hyperinflation. Electronically signed by: Terese Gilbert DO 04/10/2019 12:29 AM CDT
--- NOTE | 2019-04-10 00:37 | CT ---
EXAM DESCRIPTION: Maxillofacial CLINICAL HISTORY: 69 years Female left mandible pain, difficulty swallowing COMPARISON: None. TECHNIQUE: Contiguous axial images obtained through the maxillofacial region without IV contrast. Reformatted images obtained. This exam was performed according to our department optimization program which includes automated exposure control, adjustment of the mA and/or kv according to patient size and/or use of iterative reconstruction technique. FINDINGS: Patient is edentulous. The temporomandibular joints appear intact with minor degenerative changes. No evidence of subluxation. Small metallic fragment in the left mandible. No evidence of acute mandibular fracture. The nasal bones nasal spine and nasal septum appear intact. No fluid or significant mucosal thickening in the visualized paranasal sinuses. No facial bone fractures are identified. IMPRESSION: Patient is dentulous No facial bone fractures are identified. Electronically signed by: Annemarie Santiago MD 04/10/2019 12:35 AM CDT
--- NOTE | 2019-04-10 00:39 | CT ---
EXAM DESCRIPTION: Soft Tissue Neck w/Contrast CLINICAL HISTORY: 69 years Female, difficulty swallowing COMPARISON: None Available. TECHNIQUE: CT of the neck soft tissues with IV contrast. DLP: 275.17 mGy-cm FINDINGS: Soft tissue: No abnormalities of visualized intracranial contents. No definite abnormalities in the buccal or marketing summer intern spaces however these are incompletely evaluated on this study. No abnormalities in the parapharyngeal, pharyngeal mucosal, or retropharyngeal space. No cervical lymphadenopathy. Atherosclerotic calcification of the cervical carotid arteries. No abnormalities of the thyroid. No abnormalities of the epiglottis, vallecula, or pyriform sinuses. No mass in the visualized portions of the tongue base. The nasopharynx, oropharynx, and hypopharynx are patent. No abnormalities of the submandibular glands or parotid glands. No pneumothorax in the visualized lung apices. Mucosal thickening of the visualized paranasal sinuses. Mastoid air cells are well aerated. Bones: Degenerative change of the spine. No acute osseous abnormality. IMPRESSION: 1. No acute inflammatory or obstructive process identified. This exam was performed according to our departmental dose-optimization program, which includes automated exposure control, adjustment of the mA and/or kV according to patient size and/or use of iterative reconstruction technique. Electronically signed by: Rc Spicer 04/10/2019 12:37 AM CDT
[2019-04-10] MEDS ORDERED: ACETAMINOPHEN W/COD #3 TAB (ER Disp) PO ONE (01:50)
[2019-04-10 02:01] VITALS: BP 142/90; TEMP 97.8; O2SAT 95
== END 2019-04-10 01:58 | disposition home or self-care (01) ==
LOC: ER 22:50
DX: T18.0XXA Foreign body in mouth, initial encounter (principal); R68.84 Jaw pain; R13.10 Dysphagia, unspecified; J44.9 Chronic obstructive pulmonary disease, unspecified; I50.9 Heart failure, unspecified; I11.0 Hypertensive heart disease with heart failure; E07.9 Disorder of thyroid, unspecified; F32.9 Major depressive disorder, single episode, unspecified; Z98.890 Other specified postprocedural states; Z87.891 Personal history of nicotine dependence

== ENCOUNTER 2019-04-18 20:54 | Emergency (ER) | payer MEDICARE ==
[2019-04-18] MEDS ORDERED: HYDROcodone 10MG/APAP 325MG 1 EA TAB PO ONE (21:05)
[2019-04-18] MEDS ORDERED: cloNIDine HCL 0.1 MG TAB PO ONE (21:05)
--- NOTE | 2019-04-18 21:08 | ED.PDOC ---
History of Present Illness - General Chief Complaint: General Stated Complaint: Left knee pain Time Seen by Provider: 04/18/19 21:04 Source: patient - History of Present Illness Initial Comments: donn and fell down 2 porch steps at home at 1500 hrs today. Has been able to walk on it until this dorita Timing/Duration: 4-6 hours, getting worse Severity: severe Improving Factors: immobilization Worsening Factors: movement Associated Symptoms: denies symptoms Allergies/Adverse Reactions: Allergies NO KNOWN ALLERGY Allergy (Verified 08/30/18 23:38) Home Medications: Ambulatory Orders Ciprofloxacin [Cipro] 500 mg PO BID #14 tab 05/06/16 Lisinopril & Hydrochlorothiazi [Lisinopril/Hctz 20-12.5 mg] 1 tab PO 05/06/16 Ibuprofen 800 mg PO TID #21 tab 05/05/18 Cephalexin Monohydrate [Keflex] 500 mg PO Q8H #20 cap 08/31/18 Sulfa/Trimeth 800/160 (Ds) Tab [Bactrim DS Tab] 1 ea PO DAILY #5 tab 01/17/19 Acetaminophen W/ Codeine [Tylenol W/ CODEINE #3] 1 ea PO Q4HR PRN #24 04/10/19 Ibuprofen 800 mg PO Q8HR PRN #30 tab 04/10/19 Amlodipine Besylate 5 mg PO DAILY #30 tab 04/18/19 Tramadol HCl 50 mg PO Q4HWA PRN #15 tab 04/18/19 Review of Systems - Review of Systems Constitutional: States: no symptoms reported EENTM: States: no symptoms reported Respiratory: States: no symptoms reported Musculoskeletal: States: see HPI, joint pain Skin: States: no symptoms reported Neurological: States: no symptoms reported Past Medical History (General) - Patient Medical History Hx Seizures: No Hx Stroke: No Hx Dementia: No Hx Asthma: No Hx of COPD: Yes Hx Cardiac Disorders: No Hx Congestive Heart Failure: Yes Hx Pacemaker: No Hx Hypertension: Yes Hx Thyroid Disease: Yes Hx Diabetes: No Hx Gastroesophageal Reflux: No Hx Renal Disease: No Hx Cancer: No Hx of HIV: No Hx Hepatitis C: No Hx MRSA: No - Vaccination History Hx Tetanus, Diphtheria Vaccination: No Hx Influenza Vaccination: No Hx Pneumococcal Vaccination: No - Social History Hx Tobacco Use: Yes Hx Alcohol Use: No Hx Substance Use: No Hx Substance Use Treatment: No Hx Depression: Yes - Female History Patient : No Family Medical History - Family History Mother Family History: Unknown Hx Family Hypertension: Yes Hx Family Cancer: Yes - lung Physical Exam - Physical Exam General Appearance: Alert, Restless Ears, Nose, Throat: hearing grossly normal, normal ENT inspection Respiratory: no respiratory distress Extremity: no pedal edema, no calf tenderness, other - L knee without effusion , redness or heat; has full ROM with mild pain, tender posteriorly and laterally Neurologic: normal mood/affect, oriented x 3 Departure - Departure Clinical Impression: Sprain of left knee/leg Qualifiers: Encounter type: initial encounter Qualified Code(s): S83.92XA - Sprain of unspecified site of left knee, initial encounter Hypertension Qualifiers: Hypertension type: essential hypertension Qualified Code(s): I10 - Essential (primary) hypertension Disposition: Discharge to Home or Self Care Departure Forms: ED Discharge - Pt. Copy, Patient Portal Self Enrollment Referrals: Robert Wolfe MD [Family Provider] - 1-2 Weeks Prescriptions: Amlodipine Besylate 5 mg PO DAILY #30 tab Tramadol HCl 50 mg PO Q4HWA PRN #15 tab PRN Reason: Moderate To Severe Pain Home Medications: Ambulatory Orders Ciprofloxacin [Cipro] 500 mg PO BID #14 tab 05/06/16 Lisinopril & Hydrochlorothiazi [Lisinopril/Hctz 20-12.5 mg] 1 tab PO 05/06/16 Ibuprofen 800 mg PO TID #21 tab 05/05/18 Cephalexin Monohydrate [Keflex] 500 mg PO Q8H #20 cap 08/31/18 Sulfa/Trimeth 800/160 (Ds) Tab [Bactrim DS Tab] 1 ea PO DAILY #5 tab 01/17/19 Acetaminophen W/ Codeine [Tylenol W/ CODEINE #3] 1 ea PO Q4HR PRN #24 04/10/19 Ibuprofen 800 mg PO Q8HR PRN #30 tab 04/10/19 Amlodipine Besylate 5 mg PO DAILY #30 tab 04/18/19 Tramadol HCl 50 mg PO Q4HWA PRN #15 tab 04/18/19
--- NOTE | 2019-04-18 21:48 | RAD ---
EXAM DESCRIPTION: Knee,Left 2 or More Views CLINICAL HISTORY: 69 years Female fell onto knee COMPARISON: None TECHNIQUE: Three images of the left knee were obtained. FINDINGS: No fracture seen. Normal bony mineralization. No erosive or lytic lesions seen. Vascular calcifications noted. IMPRESSION: No fracture or dislocation seen. Electronically signed by: Mindy Roman MD 04/18/2019 9:47 PM CDT
[2019-04-18 22:21] VITALS: BP 140/90; TEMP 98.1; O2SAT 95
== END 2019-04-18 22:45 | disposition home or self-care (01) ==
LOC: ER 20:54
DX: S83.92XA Sprain of unspecified site of left knee, initial encounter (principal); I11.0 Hypertensive heart disease with heart failure; I50.9 Heart failure, unspecified; F32.9 Major depressive disorder, single episode, unspecified; J44.9 Chronic obstructive pulmonary disease, unspecified; E07.9 Disorder of thyroid, unspecified; Z87.891 Personal history of nicotine dependence; Z79.899 Other long term (current) drug therapy; W10.9XXA Fall (on) (from) unspecified stairs and steps, initial encounter; Y92.89 Other specified places as the place of occurrence of the external cause

== ENCOUNTER → 2019-05-14 | Outpatient (CLI) | payer MEDICARE ==
--- NOTE | 2019-05-14 12:37 | RAD ---
EXAM DESCRIPTION: Pelvis CLINICAL HISTORY: 69 years Female, M25.562/M25.552 COMPARISON: None. TECHNIQUE: AP radiograph of the pelvis was performed. FINDINGS: Mild diffuse osteopenia of the visualized bones noted. The pelvic ring is grossly intact. Moderate bilateral hip joint osteoarthritic changes are seen. The visualized lower lumbar spine also demonstrates degenerative changes. The visualized lower abdomen demonstrates dilated bowel loops in the left lower quadrant with gas in the distal rectum, concerning for early bowel obstruction. Moderate fecal burden is noted in the cecum and ascending colon. IMPRESSION: 1. Grossly intact pelvic ring. 2. Visualized lower abdomen demonstrates dilated bowel loops in the left lower quadrant concerning for early bowel obstruction. Clinical correlation with patient's symptoms is recommended. A dedicated abdominal radiograph is recommended if clinically warranted. 3. Constipation. Electronically signed by: Alonzo Young MD 05/14/2019 12:36 PM CDT
--- NOTE | 2019-05-14 12:39 | RAD ---
EXAM DESCRIPTION: Knee,Left Complete CLINICAL HISTORY: 69 years Female, M25.562/M25.552 TECHNIQUE: 4 views of the left knee were performed. COMPARISON: April 18, 2019. FINDINGS: The visualized bones appear well mineralized. No acute fracture or dislocation. The medial and lateral compartment joint space are well-maintained. No evidence of suprapatellar joint effusion. The soft tissues appear grossly unremarkable. IMPRESSION: 1. No acute fracture or dislocation. Electronically signed by: Alonzo Young MD 05/14/2019 12:38 PM CDT
== END ==
LOC: RAD 08:00
PROVIDERS: ATTEND Orthopaedic Surgery
DX: M25.562 Pain in left knee (principal); M25.552 Pain in left hip; K59.00 Constipation, unspecified

== ENCOUNTER → 2019-07-01 | Outpatient (CLI) | payer MEDICARE | LOC: GMA MATASK 17:48 | PROVIDERS: ATTEND Family Medicine | DX: M25.50 Pain in unspecified joint (principal) ==

== ENCOUNTER → 2020-05-16 | Outpatient (CLI) | payer MEDICARE | LOC: GMA MATASK 16:49 | PROVIDERS: ATTEND Family Medicine | DX: E53.8 Deficiency of other specified B group vitamins (principal) ==

== ENCOUNTER → 2020-05-24 | Outpatient (CLI) | payer MEDICARE ==
--- NOTE | 2020-05-24 21:29 | CT ---
EXAM DESCRIPTION: Abdomen/Pelvis w/wo Contrast CLINICAL HISTORY: 70 years Female, UNILATERAL FEMORAL HERNIA W/O OBSTRUCTION OR GANGRENE COMPARISON: Pelvic radiographs 2018. TECHNIQUE: CT of the abdomen and pelvis acquired without and with IV contrast material. Coronal and sagittal reformations provided. This exam was performed according to our departmental dose-optimization program, which includes automated exposure control, adjustment of the mA and/or kV according to patient size and/or use of iterative reconstruction technique. FINDINGS: Lung bases: Enlarged heart. Lung bases are clear. Solid Organs: Unremarkable liver, gallbladder, spleen, pancreas, adrenal glands. Subcentimeter cortical right and left renal cysts. GI tract: Unremarkable stomach. No small bowel obstruction. Moderate colonic stool. Normal appendix. Vascular: Moderate atherosclerosis. Musculoskeletal and soft tissues: No acute fracture or aggressive appearing osseous lesion. There is a fat-containing left femoral hernia without compression of the left common femoral vein. Hernia measures up to 2.9 cm in maximal width. Urinary bladder: Decompressed. Uterus and adnexa: Uterus surgically absent. Other: None. IMPRESSION: 1. No acute abnormality of the abdomen or pelvis. 2. Fat-containing left femoral hernia without compression of the left common femoral vein or fat stranding. 3. Moderate colonic stool. 4. Hysterectomy. Electronically signed by: Aamir Jimenez MD 05/24/2020 9:27 PM CDT
== END ==
LOC: CT 10:00
PROVIDERS: ATTEND Family Medicine
DX: K41.90 Unilateral femoral hernia, without obstruction or gangrene, not specified as recurrent (principal); Z90.710 Acquired absence of both cervix and uterus

== ENCOUNTER 2020-08-27 10:59 | Emergency (ER) | payer MEDICARE ==
--- NOTE | 2020-08-27 11:16 | ED.PDOC ---
History of Present Illness - General Time Seen by Provider: 08/27/20 11:07 Source: patient, RN notes reviewed, Vital Signs reviewed Exam Limitations: no limitations - History of Present Illness Initial Comments: Pt is a 70 yo female who presents to ED for bilateral hand pain and right rib pain after a fall yesterday afternoon. States she was going for a walk and stepped in a hole and fell onto her right side. Denies hitting head, LOC, neck or back pain. Reports pain to right lateral ribs, right elbow and wrist and left hand. Has been ambulatory w/o difficulty since the fall. Denies nausea, abdominal pain or other injuries. Has taken Tylenol for the pain at home with some relief. Allergies/Adverse Reactions: Allergies NO KNOWN ALLERGY Allergy (Verified 08/27/20 11:51) Home Medications: Ambulatory Orders Ciprofloxacin [Cipro] 500 mg PO BID #14 tab 05/06/16 Lisinopril & Hydrochlorothiazi [Lisinopril/Hctz 20-12.5 mg] 1 tab PO 05/06/16 Ibuprofen 800 mg PO TID #21 tab 05/05/18 Cephalexin Monohydrate [Keflex] 500 mg PO Q8H #20 cap 08/31/18 Sulfa/Trimeth 800/160 (Ds) Tab [Bactrim DS Tab] 1 ea PO DAILY #5 tab 01/17/19 Acetaminophen W/ Codeine [Tylenol W/ CODEINE #3] 1 ea PO Q4HR PRN #24 04/10/19 Ibuprofen 800 mg PO Q8HR PRN #30 tab 04/10/19 Amlodipine Besylate 5 mg PO DAILY #30 tab 04/18/19 Tramadol HCl 50 mg PO Q4HWA PRN #15 tab 04/18/19 Acetaminophen W/ Codeine [Tylenol W/ CODEINE #3] 1 tablet PO Q6H PRN #20 08/27/20 Review of Systems - Review of Systems Constitutional: Denies: chills, fever EENTM: Denies: blurred vision, double vision, nose congestion Respiratory: Denies: cough, short of breath Cardiology: Denies: chest pain, edema, palpitations, syncope Gastrointestinal/Abdominal: Denies: abdominal pain, nausea, vomiting Musculoskeletal: States: see HPI Neurological: Denies: headache, paresthesia All other Systems: Reviewed and Negative Past Medical History (General) - Patient Medical History Hx Seizures: No Hx Stroke: No Hx Dementia: No Hx Asthma: No Hx of COPD: Yes Hx Cardiac Disorders: No Hx Congestive Heart Failure: Yes Hx Pacemaker: No Hx Hypertension: Yes Hx Thyroid Disease: Yes Hx Diabetes: No Hx Gastroesophageal Reflux: No Hx Renal Disease: No Hx Cancer: No Hx of HIV: No Hx Hepatitis C: No Hx MRSA: No - Vaccination History Hx Tetanus, Diphtheria Vaccination: No Hx Influenza Vaccination: No Hx Pneumococcal Vaccination: No - Social History Hx Tobacco Use: Yes Hx Alcohol Use: No Hx Substance Use: No Hx Substance Use Treatment: No Hx Depression: Yes - Female History Patient : No Family Medical History - Family History Mother Family History: Unknown Hx Family Hypertension: Yes Hx Family Cancer: Yes - lung Physical Exam - Physical Exam General Appearance: Alert, Comfortable, No apparent distress Eye Exam: bilateral normal - PERRL Neck: non-tender, full range of motion, supple, other - No vertebral tenderness to C, T, l spine Respiratory: lungs clear, normal breath sounds, no respiratory distress, no accessory muscle use, other - TTP right ribs 6-10. No ecchymosis or skin changes Cardiovascular/Chest: regular rate, rhythm, no edema, no murmur Gastrointestinal/Abdominal: non tender, soft, no pulsatile mass Back Exam: normal inspection, no vertebral tenderness Extremity: other - Right elbow and wrist are TTP. There is edema to right distal forearm. TTP dorsal right palm with no edema. 2+ DP and PT pulses bilaterally. 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 She denies hitting her head, loss of consciousness, headache, neck pain or back pain. She has been ambulatory without difficulty. Imaging shows a nondisplaced distal right radius fracture. She has a low ring on her ring finger of the right hand that is difficult to remove. She has good sensation and cap refill to the ring finger. I have discussed cutting the ring off, but patient refuses at this time and she will attempt to get it off at home. I have informed her that if she develops any pain or paresthesias to that finger she will need to return to ED immediately following removal. Will place sugar tong splint and sling and I have asked patient to follow-up with an orthopedic surgeon within 3 days for continued evaluation. Splint care discussed. Strict return precautions given. - Results/Orders Results/Orders: CXR/RIGHT RIB SERIES EXAM: XR Right Ribs, 2 Views CLINICAL HISTORY: fall, trauma TECHNIQUE: Frontal and oblique views of the right ribs. COMPARISON: No relevant prior studies available. FINDINGS: Lungs: Visualized portions appear normal. No consolidation. Pleural space: No abnormality noted. No pneumothorax. Bones/joints: No abnormality noted. No acute fracture. IMPRESSION: No abnormality noted. Technique: Portable AP chest x-ray. Comparison: None. Clinical history: fall, trauma. Heart size: Heart size is enlarged. Lungs: No acute consolidation. Pleura: No pleural effusion. No pneumothorax. Mediastinum and ashley: Tortuous aorta. Skeletal: Anterior right sixth rib fracture is seen on the accompanying rib x-rays. Support tubings: None. Impression: 1. Cardiomegaly. Known rib fracture. RIGHT WRIST EXAM: XR Right Hand Complete, 3 Views CLINICAL HISTORY: fall, trauma TECHNIQUE: Frontal, lateral and oblique views of the right hand. COMPARISON: No relevant prior studies available. FINDINGS: Bones/joints: There is an acute fracture at the base of the radial styloid without displacement. The bones are demineralized. There is mild primary osteoarthritic change of the 1st carpometacarpal joint. Mild ankylosis of the interphalangeal joints present. Trabecular pattern and cortical surfaces of the scaphoid are intact. No dislocation. Soft tissues: Periarticular soft tissue swelling noted at the wrist . IMPRESSION: There is an acute fracture at the base of the right radial styloid without displacement. EXAM: XR Right Wrist Complete, 3 Views CLINICAL HISTORY: fall, trauma TECHNIQUE: Frontal, lateral and oblique views of the right wrist. COMPARISON: No relevant prior studies available. FINDINGS: Bones/joints: There is an acute nondisplaced fracture involving the cortex at the base of the radial styloid. There is a small cortical offset involving the ulnar side of the radial articular surface. Trabecular pattern and cortical surfaces of the scaphoid are intact. There is mild primary osteoarthritic spurring and narrowing of the 1st carpometacarpal joint. No dislocation. Soft tissues: No abnormality noted. No radiopaque foreign body. IMPRESSION: Nondisplaced intra-articular fracture of the distal radius. RIGHT ELBOW EXAM: XR Right Elbow Complete, 3 Views CLINICAL HISTORY: fall, trauma TECHNIQUE: Frontal, lateral and oblique views of the right elbow. COMPARISON: No relevant prior studies available. FINDINGS: Bones/joints: No abnormality noted. No acute fracture. No dislocation. Soft tissues: No abnormality noted. IMPRESSION: No abnormality noted. LEFT HAND EXAM: XR Left Hand Complete, 3 Views CLINICAL HISTORY: fall, trauma TECHNIQUE: Frontal, lateral and oblique views of the left hand. COMPARISON: No relevant prior studies available. FINDINGS: Bones/joints: The bones are demineralized. There is moderate primary osteoarthritic change at the 1st carpal metacarpal joint. Mild degenerative change noted at the STT joint. There is minimal interphalangeal ankylosis. No acute fracture. No dislocation. Soft tissues: No abnormality noted. No radiopaque foreign body. IMPRESSION: Chronic changes as above. No acute disease. Departure - Departure Clinical Impression: Fracture of right distal radius Qualifiers: Encounter type: initial encounter Fracture type: closed Fracture morphology: unspecified fracture morphology Qualified Code(s): S52.501A - Unspecified fracture of the lower end of right radius, initial encounter for closed fracture Contusion of rib on right side Qualifiers: Encounter type: initial encounter Qualified Code(s): S20.211A - Contusion of right front wall of thorax, initial encounter Contusion of left hand Qualifiers: Encounter type: initial encounter Qualified Code(s): S60.222A - Contusion of left hand, initial encounter Time of Disposition: 12:45 Disposition: Discharge to Home or Self Care Condition: Good Instructions: Radius Fracture (DC) Diet: resume usual diet Activity: other - Keep splint in place until seen by orthopedist Referrals: Carlos Enrique Borden MD [Primary Care Provider] - 1-2 Weeks Ray Torres MD [Active Staff] - 1-5 Days Prescriptions: Acetaminophen W/ Codeine [Tylenol W/ CODEINE #3] 1 tablet PO Q6H PRN #20 PRN Reason: Pain Home Medications: Ambulatory Orders Ciprofloxacin [Cipro] 500 mg PO BID #14 tab 05/06/16 Lisinopril & Hydrochlorothiazi [Lisinopril/Hctz 20-12.5 mg] 1 tab PO 05/06/16 Ibuprofen 800 mg PO TID #21 tab 05/05/18 Cephalexin Monohydrate [Keflex] 500 mg PO Q8H #20 cap 08/31/18 Sulfa/Trimeth 800/160 (Ds) Tab [Bactrim DS Tab] 1 ea PO DAILY #5 tab 01/17/19 Acetaminophen W/ Codeine [Tylenol W/ CODEINE #3] 1 ea PO Q4HR PRN #24 04/10/19 Ibuprofen 800 mg PO Q8HR PRN #30 tab 04/10/19 Amlodipine Besylate 5 mg PO DAILY #30 tab 04/18/19 Tramadol HCl 50 mg PO Q4HWA PRN #15 tab 04/18/19 Acetaminophen W/ Codeine [Tylenol W/ CODEINE #3] 1 tablet PO Q6H PRN #20 08/27/20
[2020-08-27 11:50] VITALS: O2SAT 95
--- NOTE | 2020-08-27 12:10 | RAD ---
: 1950. Technique: Portable AP chest x-ray. Comparison: None. Clinical history: fall, trauma. Heart size: Heart size is enlarged. Lungs: No acute consolidation. Pleura: No pleural effusion. No pneumothorax. Mediastinum and ashley: Tortuous aorta. Skeletal: Anterior right sixth rib fracture is seen on the accompanying rib x-rays. Support tubings: None. Impression: 1. Cardiomegaly. Known rib fracture. Electronically signed by: Mervin Cintron MD 08/27/2020 12:08 PM [facility]
--- NOTE | 2020-08-27 12:13 | RAD ---
EXAM: XR Right Elbow Complete, 3 Views CLINICAL HISTORY: fall, trauma TECHNIQUE: Frontal, lateral and oblique views of the right elbow. COMPARISON: No relevant prior studies available. FINDINGS: Bones/joints: No abnormality noted. No acute fracture. No dislocation. Soft tissues: No abnormality noted. IMPRESSION: No abnormality noted. Electronically signed by: Fany Adam MD 08/27/2020 12:11 PM [facility]
--- NOTE | 2020-08-27 12:14 | RAD ---
EXAM: XR Left Hand Complete, 3 Views CLINICAL HISTORY: fall, trauma TECHNIQUE: Frontal, lateral and oblique views of the left hand. COMPARISON: No relevant prior studies available. FINDINGS: Bones/joints: The bones are demineralized. There is moderate primary osteoarthritic change at the 1st carpal metacarpal joint. Mild degenerative change noted at the STT joint. There is minimal interphalangeal ankylosis. No acute fracture. No dislocation. Soft tissues: No abnormality noted. No radiopaque foreign body. IMPRESSION: Chronic changes as above. No acute disease. Electronically signed by: Fany Adam MD 08/27/2020 12:12 PM [facility]
--- NOTE | 2020-08-27 12:16 | RAD ---
EXAM: XR Right Hand Complete, 3 Views CLINICAL HISTORY: fall, trauma TECHNIQUE: Frontal, lateral and oblique views of the right hand. COMPARISON: No relevant prior studies available. FINDINGS: Bones/joints: There is an acute fracture at the base of the radial styloid without displacement. The bones are demineralized. There is mild primary osteoarthritic change of the 1st carpometacarpal joint. Mild ankylosis of the interphalangeal joints present. Trabecular pattern and cortical surfaces of the scaphoid are intact. No dislocation. Soft tissues: Periarticular soft tissue swelling noted at the wrist. IMPRESSION: There is an acute fracture at the base of the right radial styloid without displacement. Electronically signed by: Fany Adam MD 08/27/2020 12:14 PM [facility]
--- NOTE | 2020-08-27 12:17 | RAD ---
EXAM: XR Right Ribs, 2 Views CLINICAL HISTORY: fall, trauma TECHNIQUE: Frontal and oblique views of the right ribs. COMPARISON: No relevant prior studies available. FINDINGS: Lungs: Visualized portions appear normal. No consolidation. Pleural space: No abnormality noted. No pneumothorax. Bones/joints: No abnormality noted. No acute fracture. IMPRESSION: No abnormality noted. Electronically signed by: Fany Adam MD 08/27/2020 12:16 PM [facility]
--- NOTE | 2020-08-27 12:18 | RAD ---
EXAM: XR Right Wrist Complete, 3 Views CLINICAL HISTORY: fall, trauma TECHNIQUE: Frontal, lateral and oblique views of the right wrist. COMPARISON: No relevant prior studies available. FINDINGS: Bones/joints: There is an acute nondisplaced fracture involving the cortex at the base of the radial styloid. There is a small cortical offset involving the ulnar side of the radial articular surface. Trabecular pattern and cortical surfaces of the scaphoid are intact. There is mild primary osteoarthritic spurring and narrowing of the 1st carpometacarpal joint. No dislocation. Soft tissues: No abnormality noted. No radiopaque foreign body. IMPRESSION: Nondisplaced intra-articular fracture of the distal radius. Electronically signed by: Fany Adam MD 08/27/2020 12:17 PM [facility]
[2020-08-27] MEDS ORDERED: HYDROcodone 5MG/APAP 325MG 1 EA TAB PO ONE (13:32)
[2020-08-27 15:32] VITALS: BP 179/123; TEMP 98.2
== END 2020-08-27 13:46 | disposition home or self-care (01) ==
LOC: ER 10:59
DX: S52.501A Unspecified fracture of the lower end of right radius, initial encounter for closed fracture (principal); S60.222A Contusion of left hand, initial encounter; S20.211A Contusion of right front wall of thorax, initial encounter; F32.9 Major depressive disorder, single episode, unspecified; I11.0 Hypertensive heart disease with heart failure; E07.9 Disorder of thyroid, unspecified; I50.9 Heart failure, unspecified; J44.9 Chronic obstructive pulmonary disease, unspecified; Z87.891 Personal history of nicotine dependence; Z79.899 Other long term (current) drug therapy; W17.2XXA Fall into hole, initial encounter; Y93.01 Activity, walking, marching and hiking; Y92.9 Unspecified place or not applicable

== ENCOUNTER → 2020-09-05 | Outpatient (CLI) | payer MEDICARE ==
--- NOTE | 2020-09-05 13:08 | RAD ---
EXAM DESCRIPTION: Wrist,Right 3 Views CLINICAL HISTORY: FX DISTAL END OF RADIUS COMPARISON: August 27, 2020 IMPRESSION: 3 views of the right wrist again demonstrate comminuted intra-articular minimally displaced fracture of the distal radius without significant articular surface incongruity. No significant bridging callus formation is seen at this time. Mild indistinctness of the fracture margins suggesting early healing although no significant periosteal reaction is seen either. Mild osteoarthritic changes of the first carpometacarpal joint. Electronically signed by: Tam Ragland MD 09/05/2020 1:06 PM [facility]
== END ==
LOC: RAD 09:30
PROVIDERS: ATTEND Orthopaedic Surgery
DX: S52.571D Other intraarticular fracture of lower end of right radius, subsequent encounter for closed fracture with routine healing (principal); M18.9 Osteoarthritis of first carpometacarpal joint, unspecified

== ENCOUNTER → 2020-09-11 | Outpatient (CLI) | payer MEDICARE ==
--- NOTE | 2020-09-11 12:06 | RAD ---
EXAM DESCRIPTION: Wrist,Right 3 Views CLINICAL HISTORY: nondisplaced fracture COMPARISON: 05 September 2020 TECHNIQUE: 3 views right FINDINGS: A comminuted fracture of the distal radius is observed with extension into the distal radial articular surface. Alignment remains unchanged from the previous exam. No new injury is seen. Degenerative changes are observed in the metacarpal carpal articulation. IMPRESSION: Comminuted intra-articular fracture of the distal radius is again observed unchanged. Electronically signed by: Chris Garcia MD 09/11/2020 12:05 PM [facility]
== END ==
LOC: RAD 09:08
PROVIDERS: ATTEND Orthopaedic Surgery
DX: S52.571D Other intraarticular fracture of lower end of right radius, subsequent encounter for closed fracture with routine healing (principal)

== ENCOUNTER → 2020-09-22 | Outpatient (CLI) | payer MEDICARE ==
--- NOTE | 2020-09-22 16:25 | RAD ---
EXAM: Wrist,Right 3 Views INDICATION: 70 years Female, FX OF DISTAL END OF RADIUS COMPARISON: 3 views of the right wrist 09/11/2020, 09/05/2020, and 08/27/2020 FINDINGS: 3 views of the right wrist were performed. Since the prior examination of 09/05/2020, some subtle sclerosis and hazy callus formation has formed at comminuted intra-articular fractures of the distal right radius. Alignment is similar to the prior examination. No new fractures are identified. No destructive osseous lesion. Mild persistent soft tissue edema in the wrist. IMPRESSION: Mild interval progression of healing at comminuted distal right radial fractures. Electronically signed by: Radha Mai MD 09/22/2020 4:24 PM [facility]
== END ==
LOC: RAD 07:33
PROVIDERS: ATTEND Orthopaedic Surgery
DX: S52.571D Other intraarticular fracture of lower end of right radius, subsequent encounter for closed fracture with routine healing (principal)

== ENCOUNTER 2020-10-03 15:41 | Emergency (ER) | payer MEDICARE ==
[2020-10-03 15:50] VITALS: TEMP 98.5
[2020-10-03] MEDS ORDERED: PROMETHAZINE HCL 25 MG TAB PO ONE (16:03)
--- NOTE | 2020-10-03 16:31 | ED.PDOC ---
History of Present Illness - General Chief Complaint: General Stated Complaint: possible food poisoning Time Seen by Provider: 10/03/20 15:57 Source: patient Exam Limitations: no limitations - History of Present Illness Initial Comments: The patient is a 70-year-old female presented emergency room secondary to a mild runny nose as well as a mild sore throat and painful gums for the last 24 hours. She is also had a mild headache and some mild nausea but no vomiting. The patient was accidentally bitten by her dog a few days ago and the wounds appear to be healing well. These were addressed at a clinic visit 2 days ago. No syncope. No chest pain. The patient does have severe anxiety. Timing/Duration: 24 hours Severity: mild Improving Factors: nothing Worsening Factors: nothing Associated Symptoms: headaches, loss of appetite, malaise Allergies/Adverse Reactions: Allergies NO KNOWN ALLERGY Allergy (Verified 10/03/20 15:55) Home Medications: Ambulatory Orders Ciprofloxacin [Cipro] 500 mg PO BID #14 tab 05/06/16 Lisinopril & Hydrochlorothiazi [Lisinopril/Hctz 20-12.5 mg] 1 tab PO 05/06/16 Ibuprofen 800 mg PO TID #21 tab 05/05/18 Cephalexin Monohydrate [Keflex] 500 mg PO Q8H #20 cap 08/31/18 Sulfa/Trimeth 800/160 (Ds) Tab [Bactrim DS Tab] 1 ea PO DAILY #5 tab 01/17/19 Acetaminophen W/ Codeine [Tylenol W/ CODEINE #3] 1 ea PO Q4HR PRN #24 04/10/19 Ibuprofen 800 mg PO Q8HR PRN #30 tab 04/10/19 Amlodipine Besylate 5 mg PO DAILY #30 tab 04/18/19 Tramadol HCl 50 mg PO Q4HWA PRN #15 tab 04/18/19 Acetaminophen W/ Codeine [Tylenol W/ CODEINE #3] 1 tablet PO Q6H PRN #20 08/27/20 Promethazine HCl 25 mg PO Q6H PRN #10 tab 10/03/20 Review of Systems - Review of Systems Constitutional: States: malaise EENTM: States: nose congestion, throat pain Respiratory: States: no symptoms reported Cardiology: States: no symptoms reported Gastrointestinal/Abdominal: States: nausea Genitourinary: States: no symptoms reported Musculoskeletal: States: no symptoms reported Skin: States: no symptoms reported Neurological: States: headache Endocrine: States: no symptoms reported All other Systems: No Change from Baseline Past Medical History (General) - Patient Medical History Hx Seizures: No Hx Stroke: No Hx Dementia: No Hx Asthma: No Hx of COPD: Yes Hx Cardiac Disorders: No Hx Congestive Heart Failure: No Hx Pacemaker: No Hx Hypertension: Yes Hx Thyroid Disease: Yes Hx Diabetes: No Hx Gastroesophageal Reflux: No Hx Renal Disease: No Hx Cancer: No Hx of HIV: No Hx Hepatitis C: No Hx MRSA: No Surgical History: Hysterectomy - Vaccination History Hx Tetanus, Diphtheria Vaccination: No Hx Influenza Vaccination: No Hx Pneumococcal Vaccination: No - Social History Hx Tobacco Use: Yes Hx Alcohol Use: No Hx Substance Use: No Hx Substance Use Treatment: No Hx Depression: Yes - Activities of Daily Living Hospice Agency (if applicable):: None - Female History Patient is a Female of Child Bearing Age (10 -59 yrs old): No Patient : No Family Medical History - Family History Mother Family History: Unknown Hx Family Hypertension: Yes Hx Family Cancer: Yes - lung Physical Exam - Physical Exam General Appearance: Alert, Comfortable, No apparent distress Eye Exam: bilateral normal Ears, Nose, Throat: hearing grossly normal, nasal congestion, pharyngeal erythema Neck: full range of motion, supple Respiratory: lungs clear, normal breath sounds, no respiratory distress, no accessory muscle use Cardiovascular/Chest: normal peripheral pulses, regular rate, rhythm, no edema Peripheral Pulses: radial,right: 2+, radial,left: 2+ Gastrointestinal/Abdominal: non tender, soft, other - No rebound or peritoneal signs. No guarding. No point tenderness. No palpable mass. 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 The patient can take Motrin and Tylenol as needed to control any headache or low-grade fever or body aches. She does need to keep her self well-hydrated. For the nausea she will be written for Phenergan for as needed use and she needs to maintain a bland diet and again keep her self well-hydrated. She tested negative for strep throat and coronavirus here today. Keep routine follow-up with primary care doctor. javed ferreira [phone] Departure - Departure Clinical Impression: Viral syndrome Disposition: Discharge to Home or Self Care Condition: Fair Departure Forms: ED Discharge - Pt. Copy, Patient Portal Self Enrollment Instructions: Viral Gastroenteritis, Adult (DC) Diet: bland diet Activity: increase activity as tolerated Referrals: Carlos Enrique Borden MD [Primary Care Provider] - 1-2 Weeks Prescriptions: Promethazine HCl 25 mg PO Q6H PRN #10 tab PRN Reason: Vomiting Home Medications: Ambulatory Orders Ciprofloxacin [Cipro] 500 mg PO BID #14 tab 05/06/16 Lisinopril & Hydrochlorothiazi [Lisinopril/Hctz 20-12.5 mg] 1 tab PO 05/06/16 Ibuprofen 800 mg PO TID #21 tab 05/05/18 Cephalexin Monohydrate [Keflex] 500 mg PO Q8H #20 cap 08/31/18 Sulfa/Trimeth 800/160 (Ds) Tab [Bactrim DS Tab] 1 ea PO DAILY #5 tab 01/17/19 Acetaminophen W/ Codeine [Tylenol W/ CODEINE #3] 1 ea PO Q4HR PRN #24 04/10/19 Ibuprofen 800 mg PO Q8HR PRN #30 tab 04/10/19 Amlodipine Besylate 5 mg PO DAILY #30 tab 04/18/19 Tramadol HCl 50 mg PO Q4HWA PRN #15 tab 04/18/19 Acetaminophen W/ Codeine [Tylenol W/ CODEINE #3] 1 tablet PO Q6H PRN #20 08/27/20 Promethazine HCl 25 mg PO Q6H PRN #10 tab 10/03/20 Additional Instructions: The patient is a 70-year-old female presents emergency room with what appears to be a viral syndrome. The patient can take Motrin and Tylenol as needed to control any headache or low-grade fever or body aches. She does need to keep her self well-hydrated. For the nausea she will be written for Phenergan for as needed use and she needs to maintain a bland diet and again keep her self well-hydrated. She tested negative for strep throat and coronavirus here today. Keep routine follow-up with primary care doctor.
[2020-10-03 16:42] VITALS: BP 160/108; O2SAT 95
== END 2020-10-03 16:42 | disposition home or self-care (01) ==
LOC: ER 15:41
DX: B34.9 Viral infection, unspecified (principal); F32.9 Major depressive disorder, single episode, unspecified; E07.9 Disorder of thyroid, unspecified; I10 Essential (primary) hypertension; J44.9 Chronic obstructive pulmonary disease, unspecified; Z87.891 Personal history of nicotine dependence; Z79.899 Other long term (current) drug therapy; Z20.828 Contact with and (suspected) exposure to other viral communicable diseases
CPT/HCPCS: 87070; 87635; 87880; Q0169